=== PATIENT | male | born 1940 | race Caucasian/White ===

== ENCOUNTER 2024-03-26 10:42 | Day surgery (SDC) | payer BC, MEDICARE, SELFPAY ==
[2024-03-26] VITALS (10 sets, daily range): BP systolic 77–132; BP diastolic 49–84; BMI 31.5
--- NOTE | 2024-03-26 11:38 | PTCARENOTE ---
NO EKG PER DR JACOBS
--- NOTE | 2024-03-26 14:33 | ITS.CL.CATH ---
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
Cardiac Catheterization
Procedure Report:
CARDIAC CATHETERIZATION REPORT
Date of Procedure: 03/26/2024
Referring: Feliciano Montes MD
Indication: Worsening exertional dyspnea
HEMODYNAMIC DATA
AO: 120/77
LV: 131/17
PCWP: Unable
PA: Unable
RV: 86/20
RA: 22
Oximetry: Ao 91%, PA 56%, cardiac output 3.6, cardiac index 1.6
Simultaneous left ventricular and ascending aortic waveforms demonstrate moderate low gradient AAS with mean gradient 12 mmHg and JAX 1.3 cm
LEFT VENTRICULOGRAPHY: Left ventricular wall motion is normal with visually estimated EF 55%. There is severe mitral annular calcification and at least mild and possibly moderate mitral regurgitation
CORONARY ANGIOGRAPHY
Dominance: Right
Left Main: Normal
LAD: Mild luminal irregularities
Circumflex: Widely patent mid circumflex stent without restenosis
RCA: Dominant vessel with widely patent proximal to mid RCA stent. There is 30% mid RCA stenosis distal to the stented segment.
The PDA and posterolateral branches have mild luminal disease.
Closure Device: None-the procedure was performed via the right radial artery and right femoral vein.
Radiation dose (mGy): 438
DAP (cm2.Gy): 52.7
Fluoroscopy time: 13.5 minutes
CONCLUSIONS:
1. Elevated right heart filling pressures with severe pulmonary hypertension. The RV systolic pressure of 86 mm Hg should be the same as the PA systolic pressure in the absence of pulmonic stenosis. We were unable to get a balloon tipped catheter
into the pulmonary artery due to anatomic issues and the high-pressure with concomitant tricuspid regurgitation.
2. Low cardiac output state using the RV saturation as a surrogate for the PA saturation
3. Severe mitral annular calcification with at least mild and possibly moderate mitral regurgitation
4. Moderate low output/low gradient with mean gradient 12 mmHg and JAX 1.3 cm�
5. Overall normal left ventricular function with EF 55%
6. Patent RCA and circumflex stents with mild residual CAD
RECOMMENDATIONS: The etiology of his severe pulmonary hypertension is unclear. Given his symptoms of syncope, dizziness, and very significant exertional dyspnea he would be best served in my view with a pulmonary consultation followed by PFTs and
probably chest CT to rule out interstitial lung disease
Copy to: Feliciano Montes MD, Geo Adams DO
Wade Reagan MD, FAC, [facility]
[2024-03-26] MEDS: NSS 1000 IV (14:54)
== END 2024-03-26 18:00 | disposition home or self-care (01) ==
LOC: CATH 10:42
PROVIDERS: ATTENDING PHYSICIAN Internal Medicine Cardiovascular Disease; FAMILY PHYSICIAN Family Medicine; OTHER PHYSICIAN Urology
DX: I25.10 Atherosclerotic heart disease of native coronary artery without angina pectoris (principal); R06.09 Other forms of dyspnea; I08.1 Rheumatic disorders of both mitral and tricuspid valves; I27.20 Pulmonary hypertension, unspecified; Z95.5 Presence of coronary angioplasty implant and graft; R55 Syncope and collapse; R42 Dizziness and giddiness; Z79.82 Long term (current) use of aspirin; Z79.01 Long term (current) use of anticoagulants; I11.0 Hypertensive heart disease with heart failure; I50.32 Chronic diastolic (congestive) heart failure
CPT/HCPCS: 93460; C1894; Q9967

== ENCOUNTER → 2024-04-11 09:56 | Outpatient (REF) | payer BC, MEDICARE, SELFPAY | LOC: RAD 09:56 | PROVIDERS: ATTENDING PHYSICIAN Internal Medicine Critical Care Medicine; FAMILY PHYSICIAN Family Medicine | DX: I27.20 Pulmonary hypertension, unspecified (principal) | CPT/HCPCS: 71250 ==

== ENCOUNTER 2024-07-09 21:55 | Inpatient (IN) | payer MEDICARE, BC, SELFPAY ==
[2024-07-09 19:24] VITALS: BP 119/78
[2024-07-09 20:00] VITALS: BMI 28.9
[2024-07-09 20:04] VITALS: BP 107/83
[2024-07-09 20:07] LABS: % Basophils 0.7 % (0-2); % Eosinophils 4.5 % (0-6); % Immature Granulocytes 0.1 % (0-0.5); % Lymphocytes 16.4 % (20.5-51.1); % Neutrophils 67.3 % (42.2-75.2); Absolute Basophils 0.1 10^3/uL (0-0.2); Absolute Eosinophils 0.3 10^3/uL (0-0.7); Absolute Lymphocytes 1.1 10^3/uL (1.2-3.4); Absolute Monocytes 0.8 10^3/uL (0.1-0.6); Absolute Neutrophils 4.7 10^3/uL (1.4-6.5); Hematocrit 41.6 % (39.0-52.0); Hemoglobin 13.8 g/dL (13.0-18.0); Mean Corp Hgb Conc. 33.2 g/dL (33.0-37.0); Mean Corpuscular Hgb 30.1 pg (27.0-31.0); Mean Corpuscular Volume 90.8 fL (80.0-94.0); Mean Platelet Volume 10.7 fL (7.4-10.4); Nucleated Red Blood Cells % 0 % (-); Platelet Count 255 10^3/uL (130-400); Red Blood Cell Count 4.58 10^6/uL (4.70-6.10); Red Cell Dist. Width 15.4 % (11.5-14.5); White Blood Cell Count 6.9 10^3/uL (4.8-10.8)
--- NOTE | 2024-07-09 20:07 | ED.GENMED ---
History of Present Illness
General
Chief Complaint: Breathing Problem
Source: patient, spouse and family
Time Seen by Provider: 07/09/24 19:52
History of Present Illness
History of Present Illness:
83-year-old male with past medical history of atrial fibrillation, CVA, severe pulmonary hypertension, severe aortic stenosis presenting to the emergency department for evaluation at the request of his alignment technician, Dr. Mendoza, after patient had
CT scan done at [facility] yesterday which showed moderate to large left pleural effusion while he was getting worked up to have aortic valve replacement surgery. Due to the effusion patient would be unable to proceed with surgery and due to
worsening SOB since March, it was recommended patient come to ED for admission and consultation with IR for thoracentesis. Patient SOB started with rib fracture from an injury in March. No fevers, chest pain, palpitations, diaphoresis, LE edema,
cough, hemoptysis.
Past History
Past History
ED Past Medical History: Arrthythmia (AF), CAD, HTN, Hypercholesterolemia, Other (TIA) and Other (b/l carotid artery disease)
ED Past Surgical History: Other (left ICA stent)
Social History
Tobacco: Non-smoker
Alcohol: None
Drug: None
Personal:
Living: with family
Employment: Retired
Family History
Family History: Other (CVA sister)
Review of Systems
Review of Systems
All Other Systems: ROS reviewed and negative except as documented in HPI and ROS
Phy Exam
Physical Exam
Physical Exam:
GENERAL: Alert , in no apparent distress
HEAD: NCAT
EYE: clear conjunctiva
NECK: Supple
ENT: mmm.
CARDIAC: Irregularly irregular rate and rhythm, rate controlled, systolic murmur most pronounced at the right second intercostal space
LUNGS: Clear breath sounds on the right, significantly diminished lung sounds left mid to lower lung zones, no acute respiratory distress
ABDOMEN: Soft, without focal tenderness, no r/g, no cvat
NEUROLOGICAL: Alert and oriented
SKIN: Warm and dry, skin intact.
MUSCULOSKELETAL: well perfused.
PSYCH: Normal and appropriate interaction.
Scores
Heart Failure Risk
Heart Failure Risk Score: Not Applicable
Heart Score for Chest Pain Patients
STEMI patient?: Not applicable
Withdrawal Assessment of Alcohol
Withdrawal Assessment Completed?: Not applicable
Course
Orders/Labs/Results
Orders:
Orders
07/09/24 Breakfast
Cholesterol Lowering
At Your Request: Full Participation
Does patient need a safe tray?: No
Cholesterol Lowering: Sodium, 2 Gram
07/09/24 19:15
Electrocardiogram (*1) Urgent
Reason for Study: Shortness of Breath
07/09/24 19:16
EKG- Treatment ONCE
07/09/24 19:58
Complete Blood Count/With Diff Urgent
Comprehensive Metabolic Panel Urgent
Pro-BNP [NT-proBNP] Urgent
Troponin I Urgent
07/09/24 20:10
PTT Urgent
Prothrombin Time Urgent
07/09/24 21:15
CR Chest - 2 Views Urgent
Comment:
Reason For Exam: shortness of breath
07/09/24 21:16
Furosemide [Lasix] 20 mg IV NOW STA
07/09/24 21:27
Admit/Transfer Patient As Directed
Co-Sign Provider:
Level of Care: Inpatient admission
Assign to:: Telemetry
Physician / Group: Jacklyn Herrera
Diagnosis: left pleural effusion, heart failure
Reason for Telemetry: Chest Pain syndromes
Date to Stop Telemetry: 07/11/24
Time to Stop Telemetry: 11:00
Reason for Hospitalization: left pleural effusion, heart failure
Expected length of stay greater than two midnights?: Yes
ELOS- Estimated Length of Stay in days: 3
I certify the patient meets the requirements for IP care: Yes
07/09/24 21:28
PRN Pain Medication Management As Directed
May give lesser potent ordered pain med per pt: Yes
preference::
Protocol:: Medication orders for pain may be administered in a
manner that supports deferring to patient preference
when the pt is:
- Requesting an ordered lesser potent pain medication.
Least to most potent pain medications are defined
as: acetaminophen < NSAID < tramadol < opioids
(morphine, oxycodone, hydromorphone).
- Requesting a lesser dose of the same medication IF
ORDERED.
- Requesting a less intrusive route of administration
if both routes are prescribed by the provider (PO <
IV).
07/09/24 21:29
Code Status As Directed
Resuscitation Status: Full Code
07/09/24 22:46
Pregabalin [Lyrica] 200 mg PO HS
Tamsulosin [Flomax] 0.4 mg PO HS
07/09/24 22:46
CARDIOLOGY CONSULT Routine
Consulting Provider: Walt Bunch
Was physician already notified: Yes
Consult Pulmonary [PULMONARY CONSULT] Routine
Consulting Provider: Bill Arciniega
Was physician already notified: Yes
HF DIETARY CONSULT Routine
HF EDUCATOR CONSULT Routine
Comment:
IRAD CONSULT Routine
Consulting Provider: Iain Link
Was physician already notified: Yes
Reason for Consult/Procedure: thoracentesis
Acknowledgement that appropriate orders are entered: Yes
Body Fluid Cell Count Routine
What is the Body Fluid: pleural fluid
Date Specimen was Collected: 07/10/24
Time Specimen was Collected: 10:50
Comment: left
Body Fluid Glucose Routine
Fluid Source: Pleural
Other Source: left
Date Specimen was Collected: 07/10/24
Time Specimen was Collected: 10:50
Body Fluid LDH Routine
Fluid Source: Pleural
Other Source: left
Date Specimen was Collected: 07/10/24
Time Specimen was Collected: 10:50
Body Fluid Protein Routine
Fluid Source: Pleural
Other Source: left
Date Specimen was Collected: 07/10/24
Time Specimen was Collected: 10:50
Body Fluid pH Routine
Fluid Source: Pleural
Other Source: left
Date Specimen was Collected: 07/10/24
Time Specimen was Collected: 10:50
Fluid Culture with Gram Stain Routine
KAREEM Source: Pleural Fluid
Specimen Description:
Date Specimen was Collected: 07/10/24
Time Specimen was Collected: 10:50
Comment: left
Activity As Directed
Activity Level: As Tolerated
Bladder Scan As Directed
Follow Bladder Retention/Intermittent Cath Algorithm?: Yes
PRN if no void in __ hours: 6
Frequency: Per Retention Algorithm
If Bladder Scan Result >: 400
then:: Straight cath
Intake/ Output As Directed
Frequency: Per unit guidelines
Nursing to Place Non Medication Order As Directed
Physician Order: please measure post void residual and TT overnight provider the result (me if before MN)
Above order entered?: Yes
Patient Education As Directed
Type: CHF folder
Comment: give on admission. Document in Interdisciplinary Education record
Sleep Apnea Assessment by RN As Directed
Comment:
Physician Instructions:
Straight Cath As Directed
Frequency: Per Retention Algorithm
Additional Instructions: straight cath as needed per acute urinary retention algorithm for 24 hrs
Additional Instructions: for bladder scan greater than 400 mL
Vital Signs As Directed
Frequency: Other
Additional Instructions:: Q12 or per unit guidelines if more frequent.
Weight As Directed
Frequency: Once
Type of Scale: Standing Scale
Comment: Upon Admission. If unable to stand, use balanced bed scale.
IRAD Cytology Routine
Date Specimen was Collected: 07/10/24
Time Specimen was Collected: 10:50
Source: Pleural Fluid, Left
Clinical Impression: new pleural effusion post trauma 3 month ago, hx HF
History of Malignancy: no
History of Radiation / Chemotherapy: no
Submitting Physician: Naomy Christianson
Pulse Ox/cont/shift [RESP] Routine
Quantity: 1
Special Instructions: Daily pulse oximetry at rest. If greater than 92% at rest also obtain pulse oximetry
while ambulating as tolerated.
07/10/24 06:00
Echo 2D MMode Color/Doppler IN AM
Reason for Study: heart failure
07/10/24 07:12
Basic Metabolic Panel IN AM
LDH IN AM
Comment: post procedure, add on to morning labs if already drawn
Magnesium IN AM
TSH Reflex To Free T4 IN AM
Total Protein IN AM
Comment: post procedure, add on to morning labs if already drawn
07/10/24 08:00
Aspirin Low Dose EC [Aspir Low (Enteric Coated)] 81 mg PO DAILY
Ezetimibe [Zetia] 10 mg PO DAILY
Montelukast Sodium [Singulair] 10 mg PO DAILY
Nebivolol HCl [Bystolic] 5 mg PO DAILY
Pantoprazole [Protonix] 40 mg PO DAILY
07/10/24 18:00
Rivaroxaban [Xarelto] 15 mg PO QPM
Rosuvastatin Calcium [Crestor] 40 mg PO QPM
07/11/24 11:00
DC Protocol for Telemetry ONCE
Abnormal Lab Results
07/09/24 07/09/24
19:58 20:10
RBC 4.58 L 10^6/uL
(4.70-6.10)
RDW 15.4 H %
(11.5-14.5)
MPV 10.7 H fL
(7.4-10.4)
Absolute Lymphs (auto) 1.1 L 10^3/uL
(1.2-3.4)
Absolute Monos (auto) 0.8 H 10^3/uL
(0.1-0.6)
Lymphocytes % 16.4 L %
(20.5-51.1)
Monocytes % 11.0 H %
(1.7-9.3)
PT 37.4 H Sec
(11.4-14.6)
APTT 64.8 H Sec
(23.4-35.0)
BUN 22 H mg/dl
(9-20)
Creatinine 1.9 H mg/dL
(0.7-1.3)
Glucose 117 H mg/dl
(70-99)
07/09/24 19:58
07/09/24 19:58
Vital Signs
Initial and Last Documented VS:
Initial Vital Signs
Temp Pulse Resp BP Pulse Ox
98.1 F 93 14 119/78 90
07/09/24 19:24 07/09/24 19:24 07/09/24 19:24 07/09/24 19:24 07/09/24 19:24
Last Documented Vital Signs
Temp Pulse Resp BP Pulse Ox
98.6 F 76 18 120/64 92
07/10/24 15:15 07/10/24 15:15 07/10/24 15:15 07/10/24 15:15 07/10/24 15:15
MDM/Problems Addressed
Differential Diagnosis Includes:
pleural effusion NEC, less concern for hemothorax given duration of time passed since injury, malignancy, patient on eliquis so no concern for PE, worsening
MDM/Problems Addressed:
83 year old male presenting to ED at request of pulmonary, Dr. Mendoza, for evaluation of large left pleural effusion causing SOB. Patient normal O2 90-92%. sitting around 90% in ED. NAD. Exam confirms moderate to large left pleural effusions. Will
admit with plan for thoracentesis with IR in the morning. Labs ordered.
Chronic conditions affecting care: Arrhythmia
Acute Exacerbation and/or Progression of Chronic Illness: Arrhythmia and Other (pulmonary HTN)
*Pulse Oximetry
Patient hypoxic: yes
*EKG
Interpreted by ED Provider?: Yes
Heart Rate: 90
Rate: normal
Rhythm: a-fib
Ischemia: no ischemia
*Marketing Analytics Analyst Interpretation
Rate: normal
Rhythm: a-fib
*Critical Care Note
Total Time (30-74mins, 75-104mins- exclusive of procedures): Not Applicable
Data Reviewed
Review of Other/Old Records Reveals: Labs and Records
Source: patient, records, spouse and family
Patient Management
Discussion with other providers: Hospitalist
Escalation/DeEscalation of care consider admission/obs:
Hospitalist team accepts for continued evaluation and treatment
ED Attending Note
-
Portions of this chart may have been created with voice recognition software.� Occasional wrong word or��sound alike� substitutions may have occurred due to the inherent limitations of voice recognition software.
Discharge Plan
Departure
Patient Disposition: Admit
Date of Disposition: 07/09/24
Time of Disposition: 20:34
Presentation/result/management discussed w/ accepting MD/DO: Hospitalist
Discharge Problem:
Pleural effusion, Pulmonary hypertension, Aortic stenosis
Interventions
Interventions:
*Risk Screen - Suicide Last Done: 07/09/24 22:03
*General Assessment Last Done: 07/09/24 19:24
*Neglect/Abuse Screening Last Done: 07/09/24 19:24
*ED COVID-19 Vaccine History Last Done: 07/09/24 19:24
*Nursing Disposition Last Done: 07/09/24 22:43
ED- Cardiac Assessment Last Done: 07/09/24 20:00
ED- Pulmonary Assessment Last Done: 07/09/24 20:00
Discharge Date and Time
Discharge Date/Time: 07/09/24 22:43
[2024-07-09 20:27] LABS: INR 3.71; PT 37.4 Sec (11.4-14.6)
[2024-07-09 20:28] LABS: APTT 64.8 Sec (23.4-35.0)
[2024-07-09 20:31] LABS: NT-proBNP 1650 pg/ml; Troponin I < 0.012 ng/ml
[2024-07-09 20:40] LABS: ALT (SGPT) 13 U/L (0-50); AST (SGOT) 29 U/L (17-59); Albumin 3.5 g/dl (3.5-5.0); Alkaline Phosphatase 112 U/L (38-126); Blood Urea Nitrogen 22 mg/dl (9-20); Calcium 8.7 mg/dl (8.4-10.2); Carbon Dioxide 27 mmol/L (22-30); Chloride 102 mmol/L (98-107); Estimated Creatinine Clearance 30 ml/min; Glucose 117 mg/dl (70-99); Sodium 140 mmol/L (135-145); Total Bilirubin 1.2 mg/dl (0.2-1.3); Total Protein 6.4 g/dl (6.3-8.2); eGFR 34.14
--- NOTE | 2024-07-09 20:57 | HPS.HSE ---
Family Physician
-
Family Physician: Geo Adams
Chief Complaint
-
shortness of breath
History of Present Illness
Mr. Zander Adams is a 83 yo man with hx atrial fibrillation, CVA, severe pulmonary hypertension, severe with plans for TAVR in 2-3 weeks at [facility] s/p CT there yesterday for TAVR work-up showing moderate to large left pleural effusion sent
to the ER from [facility] for further treatment and work-up.
Patient states he was admitted to [facility] in March after a fall with 4 left rib fractures and pleural effusion. He told me he didn't have follow up x-ray until yesterday's CT. He has had shortness of breath with exertion. + cough. No fevers. No
chest pain.
No nausea/vomiting/diarrhea. No abdominal pain. chronic LE swelling. Lives at home with
Medical History
Past Medical History
Past Medical History: Reports Other
Additional Past Medical History:
atrial fibrillation, CVA, severe pulmonary hypertension, severe , HLD, bilateral carotid artery stenosis;
Past Surgical History: Reports Other
Additional Past Surgical History:
left ICA stent
Social History
Tobacco: Non-smoker
Alcohol: None
Family History
Family History: Not pertinent
Allergies / Home Medications
Allergies reflects when Allergies were last updated in [employer].
Home Medications with original date entered in [employer]
Allergy/Medication List:
Allergies
Allergy/AdvReac Type Severity Reaction Status Date / Time
No Known Allergies Allergy Verified 03/26/24 11:16
Home Medications
ezetimibe 10 mg tablet 10 mg PO DAILY 05/04/14
montelukast 10 mg tablet 10 mg PO DAILY 05/04/14
rosuvastatin 20 mg tablet 40 mg PO QPM 05/04/14
aspirin 81 mg tablet,delayed release 81 mg PO DAILY #0 tabs 06/10/14
rivaroxaban 20 mg tablet (Xarelto) 20 mg PO QPM ##0 06/10/14
coenzyme Q10 100 mg capsule (CoQ-10) 300 mg PO DAILY 03/26/24
furosemide 20 mg tablet 20 mg PO DAILY 03/26/24
nebivolol 5 mg tablet 5 mg PO DAILY 03/26/24
pantoprazole 40 mg tablet,delayed release 40 mg PO DAILY 03/26/24
pregabalin 100 mg capsule (Lyrica) 200 mg PO HS 03/26/24
tamsulosin 0.4 mg capsule 0.4 mg PO HS 03/26/24
vitamin B complex 1 tab PO DAILY 07/09/24
Review of Systems
-
History Source: Patient
A 12 point ROS was completed and negative except as noted: Yes
Physical Exam
Vital Signs
Vital Signs
Temp Pulse Resp BP Pulse Ox
98.1 F 82 27 107/83 92
07/09/24 19:24 07/09/24 20:04 07/09/24 20:04 07/09/24 20:04 07/09/24 20:04
Physical Exam
General: No Apparent Distress
HEENT: PERRLA
Respiratory: Other (decreased breath sounds left lung)
Cardiac: S1/S2 and Regular Rhythm
GI: Soft and Non Tender
Musculoskeletal: No Edema
Skin: Warm and Dry; No Rash
Neuro: AO x 3
Psych: Calm
Laboratory Results
-
07/09/24 19:58
07/09/24 19:58
Laboratory Results
PT 37.4 Sec (11.4-14.6) H 07/09/24 20:10
INR 3.71 07/09/24 20:10
APTT 64.8 Sec (23.4-35.0) H 07/09/24 20:10
Total Bilirubin 1.2 mg/dl (0.2-1.3) 07/09/24 19:58
AST 29 U/L (17-59) 07/09/24 19:58
ALT 13 U/L (0-50) 07/09/24 19:58
Alkaline Phosphatase 112 U/L (38-126) 07/09/24 19:58
Troponin I < 0.012 ng/ml 07/09/24 19:58
Data Reviewed
-
Diagnostic Radiology: Report Reviewed by me
Lab Data: Labs Reviewed by me
Impression/Plan
-
Mr. Zander Adams is a 83 yo man with hx atrial fibrillation on Xarelto, CVA, severe pulmonary hypertension, severe with plans for TAVR in 2-3 weeks at [facility] s/p CT there yesterday for TAVR work-up showing moderate to large left pleural
effusion sent to the ER from [facility] for further treatment and work-up.
Triage VS: T 98.1, P 93, RR 14, BP 119/78, SpO2 90%
LABS: WBC 6.9, Hg 13.8, PLT 255, Na 140, K+ 4.0, CO2 27, BUN 22, Cr 1.9, Glucose 117, liver enzymes WNL, Trop < 0.012
INR 3.71
Left Pleural Effusion
-obtaining CXR now
-IR consult for thoracentesis - send studies
-Pulmonary consult
-patient is stable on room air, in no respiratory distress
Heart Failure Unknown EF in setting of severe , acute exacerbation
-JVP appreciated on exam
-will give one dose of IV lasix x 1 now then hold further until exam and renal function tomorrow morning
-TTE
-Cardiology consult
-strict I/O, daily weights
MARCIA
-urine studies, bladder scan
-monitor with diuresis
Atrial Fibrillation
-PULLEY WORKER Nebivolol
-PULLEY WORKER Xarelto - dose adjust for renal function
HLD
-PULLEY WORKER Statin
BPH
-PULLEY WORKER Flomax
DVT PPx - PULLEY WORKER Xarelto
FULL CODE
76 minutes spent on patient care
[2024-07-09 21:00] VITALS: BP 109/85
[2024-07-09 22:00] VITALS: BP 116/63
--- NOTE | 2024-07-09 22:51 | PTCARENOTE ---
Pt arrived onto floor @2251. Pt AAOx3 and able to walk into room w/ minimal assistance. Pt with no complaints of pain or SOB at this time. Pt oriented to room and call cole; will continue to monitor.
[2024-07-09 23:12] VITALS: BMI 28.9
[2024-07-09] MEDS: LASIX 20 MG IV (23:20)
[2024-07-09] MEDS: FLOMAX 0.4 MG PO (23:20)
[2024-07-09] MEDS: LYRICA 200 MG PO (23:20)
[2024-07-09 23:38] VITALS: BP 128/71; BMI 27.9
[2024-07-10 03:07] VITALS: BP 121/71
[2024-07-10 06:00] VITALS: BMI 27.0
[2024-07-10 07:18] VITALS: BP 126/67
[2024-07-10 07:57] LABS: INR 2.42; PT 26.2 Sec (11.4-14.6)
[2024-07-10 08:14] LABS: Blood Urea Nitrogen 19 mg/dl (9-20); Calcium 8.8 mg/dl (8.4-10.2); Carbon Dioxide 24 mmol/L (22-30); Chloride 103 mmol/L (98-107); Estimated Creatinine Clearance 48 ml/min; Glucose 108 mg/dl (70-99); LDH 175 U/L (120-246); Magnesium 1.8 mg/dl (1.6-2.3); Potassium 3.5 mmol/L (3.5-5.1); Sodium 141 mmol/L (135-145); eGFR 59.26
[2024-07-10 08:26] LABS: TSH Reflex To Free T4 4.63 uIU/ml (0.47-4.68)
[2024-07-10] MEDS: ZETIA 10 MG PO (08:39)
[2024-07-10] MEDS: PROTONIX 40 MG PO (08:39)
[2024-07-10] MEDS: ASPIR LOW (ENTERIC COATED) 81 MG PO (08:39)
[2024-07-10] MEDS: SINGULAIR 10 MG PO (08:39)
[2024-07-10] MEDS: BYSTOLIC 5 MG PO (08:39)
--- NOTE | 2024-07-10 08:45 | CON.CAR ---
Addendum entered and electronically signed by Demetri Bhat MD 07/10/24 12:30:
83 yo male with PMH of CAD, prior stenting, chronic HFPEF, aortic stenosis with plans for TAVR at [facility], pulmonary HTN, permanent A fib on xarelto, is admitted with SOB. He was referred to ED due to evidence of left hemothorax on TAVR CT. He did
fall and have left sided rib fracture in March. Exam with irregular rhythm, II/ systolic murmur at RUSB, no edema. Tele: A fib 70s.
Agree with plans for IR evaluation for thoracentesis.
Resume PO lasix tomorrow.
Original Note:
Consultation
Consultation Request
Date/Time Consultation Requested: 07/09/24 10:45p
Date/Time Consultation Performed: 07/10/24 8:45a
Requesting Provider: Dr. Herrera
Performing Provider: SABRA Seaman for Dr. Bhat
Reason for Consultation: large hemothorax on outpatient chest CT
Medical History
-
Chief Complaint: abnormal chest CT as outpatient, left hemothorax
History of Present Illness:
Mr. 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 Tejada and Dr. Guevara at [facility]), permanent Afib on Xarelto, HTN, HLD and TIA, who
presents to the ER for large left hemothorax on outpatient chest CT done at [facility] on 07/08/24. He is currently under evaluation for TAVR at [facility], 07/08/24 he had several tests in preoperation for TAVR. He c/o CEBALLOS that has been ongoing and he
relates that to his moderate . He fell 04/14/24 and fractured 4 ribs on his left side, seen at [facility]. Now chest CT 07/08/24 showed a large hemothorax, [facility] contacted Dr. Tejada about the CT results and he notified the patient to go
to the ER for evaluation.
Past Medical History
Past Medical History: Other (as above)
Past Surgical History: Other (as above)
Social History
Tobacco: Non-Smoker
Alcohol: None
Personal:
Living: With Family
Employment: Retired
Family History
Family History: Reviewed & Not Pertinent
Allergies / Home Medications
Allergy/AdvReac Type Severity Reaction Status Date / Time
No Known Allergies Allergy Verified 03/26/24 11:16
�Medication �Instructions �Recorded �Confirmed �Type
ezetimibe 10 mg tablet 10 mg PO DAILY 05/04/14 07/09/24 History
montelukast 10 mg tablet 10 mg PO DAILY 05/04/14 07/09/24 History
rosuvastatin 20 mg tablet 40 mg PO QPM 05/04/14 07/09/24 History
aspirin 81 mg tablet,delayed 81 mg PO DAILY #0 tabs 06/10/14 07/09/24 Rx
release
rivaroxaban 20 mg tablet (Xarelto) 20 mg PO QPM ##0 06/10/14 07/09/24 Rx
coenzyme Q10 100 mg capsule 300 mg PO DAILY 03/26/24 07/09/24 History
(CoQ-10)
furosemide 20 mg tablet 20 mg PO DAILY 03/26/24 07/09/24 History
nebivolol 5 mg tablet 5 mg PO DAILY 03/26/24 07/09/24 History
pantoprazole 40 mg tablet,delayed 40 mg PO DAILY 03/26/24 07/09/24 History
release
pregabalin 100 mg capsule (Lyrica) 200 mg PO HS 03/26/24 07/09/24 History
tamsulosin 0.4 mg capsule 0.4 mg PO HS 03/26/24 07/09/24 History
vitamin B complex 1 tab PO DAILY 07/09/24 07/09/24 History
Review of Systems
-
History Source: Patient
All other systems: Negative unless noted
Physical Exam
Vital Signs
Temp Pulse Resp BP Pulse Ox
97.9 F 83 20 126/67 96
07/10/24 07:18 07/10/24 07:18 07/10/24 07:18 07/10/24 07:18 07/10/24 07:18
Lab Results
07/09/24 19:58
07/10/24 07:12
Troponin I < 0.012 ng/ml 07/09/24 19:58
Len-Y-Dagjfmysued Pept 1650 pg/ml 07/09/24 19:58
Physical Exam
General: Well Developed, Well Nourished and No Apparent Distress
HEENT: Normocephalic, Anicteric and Moist Mucous Membranes
Respiratory: Non Labored Respirations and Other (diminished left side)
Cardiac: S1/S2 and Irregular Rhythm
Breast: Deferred by me
GI: Soft, Non Tender and Normal Bowel Sounds
Rectal: Deferred by Provider
Genito-urinary: Clear Urine
Musculoskeletal: No Edema
Skin: Warm and Dry
Neuro: AO x 3
Hematologic/Lymphatic: No Lymphadenopathy
Psych: Calm
Impression / Plan
-
Left hemothorax - noted on outpatient chest CT 06/21/24 at [facility].
- CXR here 07/09/24 with large left sided pleural effusion.
- IRAD consult and plan for thoracentesis.
- s/p fall 04/14/24 with 4 rib fractures, seen at [facility].
Afib - permanent.
- asymptomatic, no palps.
- rate controlled with Bystolic.
- OAC with Xarelto, he took his dose last night.
- initially in admit his CrCl was < 50 therefore Xarelto dose changed to 15mg QPM but now CrCl is > 50 so Xarelto should be 20mg QPM.
Aortic stenosis - moderate on cath 03/26/24 at .
- evaluation for TAVR at [facility].
PHTN - severe.
- managed by Dr. Guevara at [facility].
- sees Dr. Tejada as well.
CAD - stable on cath 03/26/24.
- patent RCA and Circumflex stents.
- 30% mid RCA stenosis.
- Crestor, Zetia, ASA.
HFpEF - EF 55% on cath 03/26/24.
- no overt HF on exam.
- left lung sounds diminished due to effusion/hemothorax - thoracentesis today.
Data Reviewed
-
EKG: Tracing Personally Visualized and interpreted (Afib 90 bpm)
Radiology: Report Reviewed by me (CXR: large left pleural effusion, 70% of left hemithorax)
Medical Tests (Nuc Med, Echo etc): Report Reviewed by me (cath 03/26/24: patent RCA and circumflex stents, mild CAD 30% mid RCA stenosis, severe PHTN, severe MAC with mild/mod MR, mod )
Labs: Labs Reviewed by me
Old Records: Reviewed
--- NOTE | 2024-07-10 09:36 | CON.PUL ---
Consultation
Consultation Request
Date/Time Consultation Requested: 07/09/2024 - 2245
Date/Time Consultation Performed: 07/10/2024 - 932
Requesting Provider: Dr. Herrera
Performing Provider: Dr. Rios
Reason for Consultation: Left pleural effusion
Medical History
-
Chief Complaint: SOB
History of Present Illness:
83-year-old male former tobacco smoker with a past medical history of low gradient aortic stenosis, moderate�severe mitral annular calcification with mild�moderate MR, severe pulmonary hypertension with history of syncope, hypertension,
hypercholesterolemia, permanent A-fib on Xarelto, and moderate COPD who presents with SOB. He says that he fell in March 2024 and fractured 4 ribs and has been short of breath since that time. Of note, he has a planned TAVR in the next 2-3 weeks at
[place] and pre-TAVR CT chest showed a moderate�large left-sided pleural effusion and was sent to the ER for further evaluation. In the ER he was afebrile to 98.1 �F, pulse rate 93, breathing at 14 breaths/min, BP 119/78 and saturating 90% on room
air. Labs showed normal WBC at 6.9, Hb 13.8, creatinine 1.9, troponin <0.012, and proBNP elevated at 1650. CXR showed a large left-sided pleural effusion. He was admitted to the hospitalist service and underwent thoracentesis today. He also
obtained Lasix due to JVP seen on exam with concern for acute heart failure exacerbation. Cardiology consulted and echo was pending. Pulmonary service now consulted for additional management/recommendations.
When I saw the patient he was in bed in no acute distress with patient's niece, Nandini, and , Jessica, at bedside. All questions were answered. He is on room air breathing comfortably. He says his shortness of breath has improved, still
coughing up a little bit of clear phlegm. He denies chest pain, THOMPSON, abdominal pain, nausea, vomiting, fevers or chills.
Of note, patient follows with us in the [facility] office with last visit on 04/09/[address] Tejada. Patient has severe pulmonary hypertension with history of syncope, with RV pressure of 86 mmHg via RHC from 03/26/2024 (CO/CI: 3.6/1.6, respectively),
and PA pressures of 77 mmHg via echo. Also on LHC from 03/26/2024, there was severe mitral annular calcification with at least mild�moderate MR seen on left ventriculography with widely patent stents in the LCx + RCA with 30% mid RCA stenosis distal
to the stented segment; also moderate aortic stenosis with low gradient with mean gradient 12 mmHg and JAX 1.3 cm. CTD workup was checked at that last office visit. 6 MWT performed as well showing resting SpO2 99% with SpO2 of 89-90% after walking
a total of [address] chest was ordered to rule out ILD. He also had +1 lower extremity on examination. Full PFT performed on 05/19/2024 showing moderate COPD with mild restrictive lung defect and severe gas exchange capacity which was moderate
when accounting for alveolar volume involving gas exchange (DLco: 36%; DLco/VA: 52%). He has another appointment with our office on 07/13/2024 at 1 PM.
PMHx: Low gradient aortic stenosis, moderate to severe mitral annular calcification with at least mild�moderate MR, severe pulmonary hypertension, hypertension, hypercholesterolemia, permanent A-fib on Xarelto, GERD, pancreatic cyst, history of TIA,
moderate COPD
PSHx: Cardiac stents, carotid endarterectomy, knee replacement
Past Medical History
Past Medical History: Other (Above as per HPI)
Past Surgical History: Other (Above as per HPI)
Social History
Tobacco: Former Smoker (1-2 PPD for several months and quit in 1962)
Alcohol: None
Drug: None
Personal:
Living: With Family
Family History
Family History: CAD (Brother) and Cancer (Brother: Prostate cancer; Brother: Brain cancer)
Allergies / Home Medications
Allergies
Allergy/AdvReac Type Severity Reaction Status Date / Time
No Known Allergies Allergy Verified 03/26/24 11:16
Home Medications
�Medication �Instructions �Recorded �Confirmed �Last Taken �Type
ezetimibe 10 mg tablet 10 mg PO DAILY 05/04/14 07/09/24 07/09/24 History
montelukast 10 mg tablet 10 mg PO DAILY 05/04/14 07/09/24 07/09/24 History
rosuvastatin 20 mg tablet 40 mg PO QPM 05/04/14 07/09/24 07/08/24 History
aspirin 81 mg tablet,delayed 81 mg PO DAILY #0 tabs 06/10/14 07/09/24 07/09/24 Rx
release
rivaroxaban 20 mg tablet (Xarelto) 20 mg PO QPM ##0 06/10/14 07/09/24 07/08/24 Rx
coenzyme Q10 100 mg capsule 300 mg PO DAILY 03/26/24 07/09/24 07/09/24 History
(CoQ-10)
furosemide 20 mg tablet 20 mg PO DAILY 03/26/24 07/09/24 07/09/24 History
nebivolol 5 mg tablet 5 mg PO DAILY 03/26/24 07/09/24 07/09/24 History
pantoprazole 40 mg tablet,delayed 40 mg PO DAILY 03/26/24 07/09/24 07/09/24 History
release
pregabalin 100 mg capsule (Lyrica) 200 mg PO HS 03/26/24 07/09/24 07/08/24 History
tamsulosin 0.4 mg capsule 0.4 mg PO HS 03/26/24 07/09/24 07/08/24 History
vitamin B complex 1 tab PO DAILY 07/09/24 07/09/24 07/09/24 History
Review of Systems
-
History Source: Patient
All other systems: Negative unless noted
Vitals / Labs / Diagnostic Testing
Vital Signs
Temp Pulse Resp BP Pulse Ox
98.0 F 83 16 112/56 93
07/10/24 10:30 07/10/24 10:30 07/10/24 10:30 07/10/24 10:30 07/10/24 10:30
Lab Data
07/09/24 19:58
07/10/24 07:12
Laboratory Results
07/09/24 07/10/24
20:10 07:16
PT 37.4 H 26.2 H
INR 3.71 2.42
APTT 64.8 H
Diagnostic Testing:
Physical Exam
-
HEENT: Normocephalic and Anicteric
Cardiovascular: S1/S2, Murmur (SHANNON) and Peripheral Edema (negative)
Respiratory: Wheeze (negative), Rales (Left middle lobe-left lower lobe region) and Non-Labored Respirations
GI: Soft, Non Distended, Non Tender and Normal Bowel Sounds
Neurology: AO x 3 and Tremors (negative)
Skin: Warm and Dry
General: Respiratory Distress (negative), Comfortable, Chills (negative) and Sweats (negative)
Assessment
-
Assessment: 83-year-old male former tobacco smoker with a PMHx of low gradient aortic stenosis, moderate�severe mitral annular calcification with mild�moderate MR, severe pulmonary hypertension with history of syncope, hypertension,
hypercholesterolemia, permanent A-fib on Xarelto, and moderate COPD who presents with SOB. SOB has been ongoing since he fell in April 13 and fractured 4 ribs. Of note, he was sent to the ER for evaluation by his motor man at [place] as his
pre-TAVR CT chest showed large left-sided pleural effusion. He was given IV Lasix on 07/09/2024 given concern for acute decompensated heart failure with JVP seen on exam. He was admitted to the hospitalist service and underwent thoracentesis on
07/10/2024. Pulmonary now consulted for additional management/recommendations.
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
cyst, history of TIA, moderate COPD
Impression:
#Left-sided pleural effusion s/p thoracentesis (done today � 07/10/2024 removing 500 cc of exudative fluid likely pseudo exudative) likely due to history of aortic stenosis
#Acute HFpEF exacerbation
#Low gradient aortic stenosis (reported as severe and awaiting TAVR at [place] in next few weeks)
#MARCIA (improving)
#Severe pulmonary hypertension
#Mild-moderate mitral regurgitation with severe mitral annular calcification
#Moderate COPD (likely due to unremitting asthma; absolute eosinophil count 300 from 07/09/2024; no evidence of emphysema or bronchitis on CT chest from March 2024)
#History of peripheral groundglass opacity in the lateral APRIL (seen on CT chest from 04/11/2024)
Plan:
- Patient underwent thoracentesis today with 500 cc removed showing pseudo exudative fluid (likely due to diuresis) which is monocyte predominant with low glucose (54) and pH 7.11
- Effusion is likely combination of valvular heart disease + acute decompensated heart failure/acute HFpEF
- Continue with diuresis as tolerated, trending sCr, I/O and UOP
- Sodium/fluid restricted diet recommended
- Re-check TTE --> done today, showing normal biventricular size with enlarged RV size with normal RV function, dense mitral annular calcification with moderate MR, moderate and severe pulmonary hypertension with PASP 65 to 70 mmHg
- He is awaiting a TAVR at [place] in the next few weeks and I advised him to continue with this plan
- Cardiology on board and recs appreciated
- Continue Xarelto with goal HR<110
- Replete electrolytes with K>4, Mg>2
- Maintain SpO2 88-95% with supplemental O2 as needed
- He does have a history of COPD although no emphysema or evidence of bronchitis seen on imaging. His absolute eosinophil count was 300 from this admission. For now, continue with prn DuoNebs and we can always start him on a LABA/ICS if breathing
not improved despite diuresis and thoracentesis
- Continue singulair
- Incentive spirometer encouraged
- Maintain euglycemia with goal BG >100 and <180
- Recommend repeating CT chest to follow-up left upper lobe 6 mm GGO seen on CT chest from 04/11/2024. Would recommend repeating CT chest in 3 to 6 months to assure stability
- DVT ppx
Patient is being prepared for discharge home today. He already has a follow-up appointment with our office on 07/13/2024 at [address] Tejada. Pulmonary service will now sign off. Thank you for allowing us to be involved in the care of this
patient. Please reconsult if there are any additional questions/concerns, or if patient's respiratory status deteriorates.
Data:
CXR 07/09/2024: There is large left-sided pleural effusion occupying approximately 70% of the left hemithorax
Total time spent today was 55 minutes for this encounter. Time includes reviewing laboratory test/imaging results, reviewing pertinent medical records, obtaining and reviewing medical history, performing an appropriate exam, ordering medications,
tests and procedures. Time also includes documentation of this encounter, coordinating patient care and communicating with other healthcare professionals. Total time does not include separately billed tests performed on this date of service.
[2024-07-10 10:30] VITALS: BP 112/56; BP_SYST 83
--- NOTE | 2024-07-10 11:14 | CM ---
Patient off floor, initial assessment completed by , Jessica. Per , patient and reside in a multiple story home, master bedroom/bathroom on first floor, one step to enter. Patient has a walker and cane at home for ambulation. Patient
has had VN through [facility] in April, denies SNF. Patient PCP Geo Adams, pharmacy [facility], confirms prescription coverage. reports no needs at this time. TT to Hospitalist for PT order. CM will continue to follow for all
discharge planning needs.
Plan; home no needs vs VN, watch for needs.
[2024-07-10 11:37] LABS: Body Fluid pH 7.11
[2024-07-10 11:43] LABS: Body Fluid Glucose 54 mg/dl; Body Fluid LDH 342 U/L; Body Fluid Mononuclear 61.3 %; Body Fluid Polymorphonuclear 38.7 %; Body Fluid Protein 3.6 g/dl; Body Fluid WBC 1863 /CUMM
[2024-07-10 11:55] LABS: Body Fluid Second Tech EM
[2024-07-10 12:07] VITALS: BP 99/62
--- NOTE | 2024-07-10 12:09 | W.PN.HOSP.TC ---
Today's Communication/Plan
-
d/c home after pulm eval
Assessment / Plan
Assessment / Plan
1. Left sided pleural effusion
-Initially found on CT chest done @ [place] as part of TAVR workup
-Had mechanical fall and left sided rib fracture in 04/14/24. Imaging done at [facility] at that time may have showed small effusion per spouse.
-Patient rib pain initially improved and did not reoccur.
-CXR in ER showing mod effusion - images reviewed
-S/p Left thoracentesis today with drainage of 500ml of exudative fluid - TWBC 1863 with Bladen 61% PMN 38.7% LDH 342 Glu 54. Gram statin neg. Culture pending. Cytopath collected.
-Suspecting initial rib fracture related pleurisy made prone patient for effusion
-Follow up CXR in 2 views, script provided
-Pumo evaluation pending today
2. Sev
-Pending TAVR at [facility], going through pre-TAVR workup
-Cardiology consulted and input noted
3. MARCIA
-resolved today
4. Paroxysmal Atrial Fibrillation
-RELEASE SPECIALIST Nebivolol
-renal function improved and to be resumed back on xarelto 20mg QPM
5. Sev pulmonary HTN
-f/uing up with [place] [employer]
HLD
BPH
DVT PPx - RELEASE SPECIALIST Xarelto
FULL CODE
More than 30 minutes spent in discharge including
Final examination of the patient
Summarizing hospital stay
Instructions for continuing care to all relevant caregivers
Preparation of discharge records, prescriptions, and referral forms
Total time spent (in minutes): 38 mins
Anticipated Discharge: Today
Subjective/Interval History
-
Date of Service: July 10, 2024
no sob post procedure
resting comfortably in bed
Objective Data
-
Labs:
Laboratory Results
07/10/24 07/10/24
07:12 07:16
PT 26.2 H
INR 2.42
Sodium 141
Potassium 3.5
Chloride 103
Carbon Dioxide 24
BUN 19
Creatinine 1.2
Glucose 108 H
Calcium 8.8
Vital Signs:
Vital Signs
Temp Pulse Resp BP Pulse Ox
98.0 F 83 16 112/56 93
07/10/24 10:30 07/10/24 10:30 07/10/24 10:30 07/10/24 10:30 07/10/24 10:30
I&O
07/09/24 07/10/24 07/11/24
06:59 06:59 06:59
Output Total 1899 / 1899
Balance -1899 / -1899
Review of Systems
-
Respiratory: Reports No Symptoms
Cardiac: Reports No Symptoms
Abdomen/GI: Reports No Symptoms
Physical Exam
-
General: No Apparent Distress and Comfortable
HEENT: Negative Oxygen
Respiratory: Clear to Auscultation
Cardiac: Regular Rhythm and S1/S2; Negative Murmur or Rub
GI: Soft, Nontender, Nondistended and Normal Bowel Sounds
Musculoskeletal: No Edema
Neuro: Awake, Alert, Oriented, No Motor Deficits and Nonfocal/Grossly Intact
Psych: Calm
[2024-07-10 15:15] VITALS: BP 120/64
--- NOTE | 2024-07-11 17:08 | W.DCSUMMARY ---
Discharge Summary
Discharge Data
Date of Admission: 07/09/24
Date of Discharge: 07/10/24
-
Pending Results: No
Hospital Course
Discharging Physician : Dr Tobias Menjivar
Disposition : To home
Primary care physician : Dr Geo Velázquez
Principal Discharge diagnosis :
Left-sided pseudo exudative pleural effusion
Possible loculated left effusion
Acute kidney injury
Chronic Discharge diagnosis :
Severe aortic stenosis
Paroxysmal atrial fibrillation
Severe pulmonary hypertension
Hyperlipidemia
Benign prostatic hyperplasia
Hospital Course :
Patient is 83-year-old male with no mentioned past medical history came to ER after was found to having new left-sided moderate pleural effusion. Patient is undergoing preoperative evaluation for TAVR and as part of that had CT chest done at [facility]. Patient was noted to having new left-sided effusion and came to ER. Patient was asymptomatic and denied of having any shortness of breath/left-sided pain. Chest x-ray in ER showing moderate effusion and interventional radiology was
consulted for thoracentesis. Patient underwent drainage of 500 cc blood containing pleural fluid. Patient had history of rib fracture in March last week and was evaluated at [facility] and was noted to having small effusion at that point.
Patient had some discomfort in that site which resolved at that time. Patient was evaluated by pulmonology and is planned to follow-up in office early next week. Postthoracentesis x-ray reviewed and patient had evidence of residual effusion with
some loculation.
Important imaging findings :
None
Procedure findings :
None
Discharge Plan
-
Patient Disposition: Home (Routine Discharge)
Discharge Diagnosis/Procedures: Left sided effusion
Condition: Fair
Diet: 2 Gram Sodium
Activity: As tolerated
Driving Restrictions: As prior to admission
Bathing Restrictions: OK to Shower
Others Tests: Chest xray in 1-2 week
Activity Restrictions/Additional Instructions:
Follow up with your Car Rider at [facility] after repeat Chest Xray
Referrals:
Alexander Tejada MD [Active] - 07/13/24 1:00 pm
Geo Adams DO [Family Provider] - in one week
Prescriptions:
Continued
montelukast 10 MG tablet
10 mg PO DAILY
ezetimibe 10 MG tablet
10 mg PO DAILY
rosuvastatin 20 MG tablet
40 mg PO QPM
aspirin 81 MG tablet,delayed release (DR/EC)
81 mg PO DAILY Qty: 0 0RF
Rx Instructions:
To start when restarting Xaralto
Xarelto 20 MG tablet
20 mg PO QPM Qty: 0 0RF
pantoprazole 40 mg Tablet,Delayed Release (Dr/Ec)
40 mg PO DAILY
tamsulosin 0.4 mg Capsule
0.4 mg PO HS
furosemide 20 mg Tablet
20 mg PO DAILY
pregabalin [Lyrica] 100 mg Capsule
200 mg PO HS
Patient Comments:
07/09/2024: last filled 03/06/24, 270 tabs for 90 days from [id number]
nebivolol 5 mg Tablet
5 mg PO DAILY
coenzyme Q10 [CoQ-10] 100 mg Capsule
300 mg PO DAILY
vitamin B complex Tablet Extended Release
1 tab PO DAILY
Discharge Orders:
Discharge Patient (As Directed); Ordered 07/10/24
Ordered By: Tobias Menjivar
Discharge Date and Time
Discharge Date/Time: 07/10/24 17:11
Print Language: GABONESE
== END 2024-07-10 17:11 | disposition home or self-care (01) | DRG 306 ==
LOC: 4 WEST ACU 21:55
PROVIDERS: Emergency Medicine; Physician Assistant; Physician Assistant Medical; Radiology Vascular & Interventional Radiology; ADMITTING PHYSICIAN Student in an Organized Health Care Education/Training Program; ATTENDING PHYSICIAN Hospitalist; EMERGENCY PHYSICIAN Emergency Medicine; FAMILY PHYSICIAN Family Medicine; OTHER PHYSICIAN Internal Medicine; OTHER PHYSICIAN Internal Medicine Critical Care Medicine
PROC: 0W9B3ZZ Drainage of Left Pleural Cavity, Percutaneous Approach (ICD-10-PCS; 2024-07-10)
DX: I35.0 Nonrheumatic aortic (valve) stenosis (principal); I50.33 Acute on chronic diastolic (congestive) heart failure; I48.21 Permanent atrial fibrillation; J91.8 Pleural effusion in other conditions classified elsewhere; K86.2 Cyst of pancreas; N17.9 Acute kidney failure, unspecified; J94.2 Hemothorax; E78.00 Pure hypercholesterolemia, unspecified; I25.10 Atherosclerotic heart disease of native coronary artery without angina pectoris; I65.23 Occlusion and stenosis of bilateral carotid arteries; K21.9 Gastro-esophageal reflux disease without esophagitis; J44.89 Other specified chronic obstructive pulmonary disease; I27.20 Pulmonary hypertension, unspecified; I10 Essential (primary) hypertension; N40.0 Benign prostatic hyperplasia without lower urinary tract symptoms; Z96.659 Presence of unspecified artificial knee joint; Z95.5 Presence of coronary angioplasty implant and graft; Z87.891 Personal history of nicotine dependence; Z86.73 Personal history of transient ischemic attack (TIA), and cerebral infarction without residual deficits; Z82.49 Family history of ischemic heart disease and other diseases of the circulatory system; Z79.899 Other long term (current) drug therapy; Z79.82 Long term (current) use of aspirin; Z79.01 Long term (current) use of anticoagulants
CPT/HCPCS: 88305; 32555; 71045; 71046; 80048; 80053; 82945; 83615; 83735; 83880; 83986; 84155; 84157; 84443; 84484; 85025; 85610; 85730; 87015; 87070; 87205; 88112; 89051; 93005; 93306; 99285

== ENCOUNTER 2024-12-16 14:25 | Inpatient (IN) | payer MEDICARE, BC, SELFPAY ==
[2024-12-16] VITALS (9 sets, daily range): BP systolic 92–131; BP diastolic 67–92; BMI 28.3
--- NOTE | 2024-12-16 08:48 | W.PN.CARDCBS ---
Addendum entered and electronically signed by Sampson Quach MD 12/16/24 13:55:
Patient seen and examined
Agree with RISK MANAGER note and assessment
Agree with RISK MANAGER plan
Discussed single-chamber pacemaker implantation with patient and family at the bedside. Discussions with Dr. Roper yesterday regarding transfer. 30 second pause on his ILR with syncope. Prior TAVR at [facility] in July 2024.
General:��no apparent distress, not acutely ill
Neck:��supple. no meningeal signs.
Heart:��s1/s2 regular rate and rhythm, No S3 or S4, Gr 1/6 BSEM,��no rubs, nl PMI equal radial pulses.
Lungs: ��no acute respiratory distress. clear bilaterally
Abdomen:�normal bowel sounds. not tender. no CVAT
Neuro:��alert and oriented. no focal neurological deficits
Skin: ��no rash
Psychiatric:�well kept. interactive and cooperative
Extremities:��no edema. no calf tenderness. negative homans. good distal pulses
General:��no apparent distress, not acutely ill
Neck:��supple. no meningeal signs.
Heart:��s1/s2 regular rate and rhythm, No S3 or S4, Gr 1/6 BSEM,��no rubs, nl PMI equal radial pulses.
Lungs: ��no acute respiratory distress. clear bilaterally
Abdomen:�normal bowel sounds. not tender. no CVAT
Neuro:��alert and oriented. no focal neurological deficits
Skin: ��no rash
Psychiatric:�well kept. interactive and cooperative
Extremities:��no edema. no calf tenderness. negative homans. good distal pulses
Impression:
Syncope with 30sec pause
Loculated pleural effusion post L thoracentesis 12/15/24 150cc
facial laceration d/t fall from syncope
CAD
- Stent to circ and RCA x2 at [facility]
- Cath in 2003 showing patent stents
Permanent Atrial fibrillation (on Xarelto)
History of TIA 11/08/2012
Left internal carotid artery stenosis S/P stent 12/20/2000
- Carotid ultrasound 2023 showing patent L stent and right CEA
Status post loop recorder
Aortic stenosis S/P TAVR 07/21/2024
Chronic diastolic heart failure
BPH
Pancreatic cyst
Plan:
Admit IVU post PPM placement, Loop removal
CXR and Abx post device
resume metoprolol
Will hold Xarelto, resume per EP cards, was restarted on 10mg after TAVR, recommended dose would be 20mg and would resume Xarelto 20 mg daily evening of December 16
Will check BMP with Crcl in am and adjust dose as needed
CAD continue ASA, statin
Will have incision check at [facility] 1 week
continue cardiac care with Dr. Snowden. I sent a text message relating care to Dr. Snowden
��
�
��
�
Original Note:
Today's Communication / Plan
-
PPM placement and Loop explant today
Impression / Plan
-
This is a summary, see scanned H&P
PCP: Geo Adams DO
CDY: Evans Snowden DO
84-year-old male h/o CAD/PCI, post TAVR 2023, Afib, TIA who presented to [facility] by EMS after syncopal episode requiring bystander CPR on 12/14, he hit his head when he fell, CT head/neck neg. His Loop recorder was eventually interrogated and noted
that during the episode he had a 30 sec pause. He is being transferred today for PPM placement.
Impression:
Syncope with 30sec pause
Loculated pleural effusion post L thoracentesis 12/15/24 150cc
facial laceration d/t fall from syncope
CAD
- Stent to circ and RCA x2 at [facility]
- Cath in 2003 showing patent stents
Permanent Atrial fibrillation (on Xarelto)
History of TIA 11/08/2012
Left internal carotid artery stenosis S/P stent 12/20/2000
- Carotid ultrasound 2023 showing patent L stent and right CEA
Status post loop recorder
Aortic stenosis S/P TAVR 07/21/2024
Chronic diastolic heart failure
BPH
Pancreatic cyst
Plan:
Admit IVU post PPM placement, Loop removal
CXR and Abx post device
resume metoprolol
Will hold Xarelto, resume per EP cards, was restarted on 10mg after TAVR, recommended dose would be 20mg
Will check BMP with Crcl in am and adjust dose as needed
CAD continue ASA, statin
Will have incision check at [facility] 1 week
continue cardiac care with Dr. Snowden
Echocardiogram 12/14/24:
SUMMARY
1. Left ventricular ejection fraction, by visual estimation, is 50%.
2. Right ventricular cavity size is mildly dilated with mildly to moderately decreased systolic function. (TAPSE 1.6 cm).
3. Indeterminate LV diastolic function.
4. Severely dilated left atrium by volume index 77.0 mL/m2.
5. Severely dilated right atrium by area 35.8 cm2.
6. Right atrial pressure of (15 mmHg), the estimated right ventricular systolic pressure is severely elevated at (73.7 mmHg).
7. Inferior vena cava normal in size (>2.1 cm) + less than 50% variably consistent with elevated right atrial pressures (15 mmHg).
8. Status post well seated and normal functioning transcatheter aortic valve replacement (TAVR).
9. AoV velocity of 1.38 m/s; Peak aortic valve gradient = 7.6 mmHg; Mean gradient = 4.9 mmHg; AoV Area by continuity equation = 1.48 cm2; AoV Dimensionless Index = 0.47.
10. Aortic valve is a normally functioning mechanical prosthetic valve. No evidence of aortic valve stenosis. Trace aortic regurgitation.
11. Mild to moderate mitral valve regurgitation is seen.
12. Severe mitral annular calcification.
13. Severe tricuspid regurgitation.
Nuclear stress test 03/05/2024:
Conclusions
Patient has known coronary artery disease
The overall test suggests a low likelihood of significant coronary ischemia. Stress upright and perfusion imaging assessed. There is a small focal apical inferior defect which appears fixed. There is a small focal mid anterior defect, which appears
fixed.
Nondiagnostic pharmacologic stress ECG
No symptoms, no arrhythmias
Gated LV ejection fraction 59%, no obvious regional findings. No evidence of transient LV cavity dilatation
Comments:
Comparison study was a pharmacologic nuclear stress test December 12, 2022 which demonstrated no significant perfusion defects. Gated LV ejection fraction 62%
Progress Note - Refinery Operator Coking
Subjective
Date of Service: December 16, 2024
denies cp, sob, LH, dizzy
Objective
Labs:
Laboratory Last Values
WBC 7.3 10^3/uL (4.5-11.0) 12/15/24 00:02
RBC 5.12 10^6/uL (4.20-5.40) 12/15/24 00:02
Hgb 13.9 gm/dL (13.5-16.5) 12/15/24 00:02
Hct 44.2 % (40.0-48.0) 12/15/24 00:02
MCV 86 fl (82-98) 12/15/24 00:02
RDW 17.3 % (11.0-15.0) H 12/15/24 00:02
Plt Count 158 10^3/uL (150-400) 12/15/24 00:02
Neut % (Auto) 58 % (40-78) 12/15/24 00:02
Lymph % (Auto) 29 % (21-49) 12/15/24 00:02
Sumner % (Auto) 10 % (0-10) 12/15/24 00:02
Eos % (Auto) 2 % (0-4) 12/15/24 00:02
Baso % (Auto) 1 % (0-1) 12/15/24 00:02
Neut # (Auto) 4.2 10^3/uL (2.2-8.0) 12/15/24 00:02
Lymph # (Auto) 2.1 10^3/uL (1.0-4.0) 12/15/24 00:02
Sumner # (Auto) 0.7 10^3/uL (0.0-1.0) 12/15/24 00:02
Eos # (Auto) 0.1 10^3/uL (0.0-0.4) 12/15/24 00:02
Baso # (Auto) 0.1 10^3/uL (0.0-0.1) 12/15/24 00:02
PT 17.4 SECONDS (11.5-14.4) H 12/15/24 00:02
INR 1.42 INR 12/15/24 00:02
APTT 35 SECONDS (23-37) 12/13/24 17:05
Specimen Type Arterial 12/13/24 17:09
Puncture Site Rr 12/13/24 17:09
Patient Temperature 37.0 C 12/13/24 17:09
ABG pH at Pt Temp 7.36 (7.35 - 7.45) 12/13/24 17:09
ABG pCO2 at Pt Temp 43.0 mmHg (32.0 - 45.0) 12/13/24 17:09
ABG pO2 at Pt Temp 85.0 mmHg (80.0 - 100.0) 12/13/24 17:09
ABG HCO3 24.3 c)mmol/L (21.0 - 28.0) 12/13/24 17:09
ABG O2 Saturation 96.0 % (88.0 - 100.0) 12/13/24 17:09
ABG Base Excess -1.3 (B)mmol (-2.0 - 2.0) 12/13/24 17:09
Floyd Test Pos 12/13/24 17:09
ABG Sodium 134.0 mmol/L (136.0 - 145.0) L 12/13/24 17:09
ABG Potassium 4.4 mmol/L (3.5 - 5.1) 12/13/24 17:09
ABG Chloride 104.0 mmol/L (98.0 - 107.0) 12/13/24 17:09
ABG Ionized Calcium 4.87 mg/dL (4.6 - 5.32) 12/13/24 17:09
ABG Glucose 134.0 mg/dL (65.0 - 95.0) H 12/13/24 17:09
ABG Lactate 3.1 mmol/L (0.4 - 0.8) H 12/13/24 17:09
Hgb O2 Saturation 94 % (95.0 - 98.0) L 12/13/24 17:09
Carboxyhemoglobin 2.5 % (0.0 - 9.0) 12/13/24 17:09
Methemoglobin 0.1 % (0.0 - 1.5) 12/13/24 17:09
Total Hemoglobin 14.4 g/dl (12.0 - 17.0) 12/13/24 17:09
Oxygen Content 19.0 ml/dL (15.0 - 23.0) 12/13/24 17:09
Liter Flow 15.00 12/13/24 17:09
FiO2 100 % 12/13/24 17:09
Sodium 140 mmol/L (136-145) 12/15/24 00:02
Potassium 4.0 mmol/L (3.5-5.1) 12/15/24 00:02
Chloride 104 mmol/L (98-107) 12/15/24 00:02
Carbon Dioxide 23.7 mmol/L (22.0-29.0) 12/15/24 00:02
Anion Gap 13 (7-16) 12/15/24 00:02
BUN 13 mg/dL (8-23) 12/15/24 00:02
Creatinine 1.09 mg/dL (0.70-1.20) 12/15/24 00:02
GFR Calculation 66 (Over 90) L 12/15/24 00:02
BUN/Creatinine Ratio 11.5 (7.0-25.0) 12/15/24 00:02
POC Glucometer 105 mg/dL (70 - 110) 12/14/24 23:57
Fasting Glucose 117 mg/dL (70-110) H 12/15/24 00:02
Lactic Acid 0.7 mmol/L (0.5-2.0) 12/14/24 03:46
Calcium 9.3 mg/dL (8.8-10.2) 12/15/24 00:02
Phosphorus 3.7 mg/dL (2.5-4.5) 12/15/24 00:02
Magnesium 2.2 mg/dL (1.6-2.4) 12/15/24 00:02
Total Creatine Kinase 60 U/L (20-200) 12/14/24 10:16
CK-MB (CK-2) 3.4 ng/mL (0.0-5.0) 12/14/24 10:16
CK-MB (CK-2) Rel Index 5.7 ng/100IU (0-2.8) H 12/14/24 10:16
Troponin T 5th Gen ng/L 14 ng/L (0-22) 12/15/24 14:18
NT-Pro-B Natriuret Pep 2576 pg/mL (0-300) H 12/14/24 10:16
Triglycerides 65 mg/dL (60-150) 12/14/24 10:16
Cholesterol 96 mg/dL (150-200) L 12/14/24 10:16
LDL Cholesterol, Calc 54 mg/dL (110-160) L 12/14/24 10:16
HDL Cholesterol 29 mg/dL (40-60) L 12/14/24 10:16
Cholesterol/HDL Ratio 3.33 (2.00-5.00) 12/14/24 10:16
25-OH Vitamin D Total 31.9 ng/mL (>30) 12/13/24 17:05
Free T4 Index 5.7 (4.4-11.4) 12/13/24 17:05
Thyroxine (T4) 6.2 mcg/dL (4.5-11.7) 12/13/24 17:05
Free T3 pg/mL 2.4 pg/mL (2.5-4.3) L 12/14/24 03:49
T3 Uptake 1.08 TBI (0.8-1.3) 12/13/24 17:05
TSH 3rd Generation 4.940 mcIU/mL (0.270-4.20) H 12/14/24 03:49
Prolactin 23.5 ng/mL (4.0-15.2) H 12/15/24 00:02
Arterial Blood Glucose 134.0 mg/dL (65.0 - 95.0) H 12/13/24 17:09
Pleural Fluid Source Pleural fluid 12/15/24 13:23
Pleural WBC 316 mm3 (0-1000) 12/15/24 13:23
Pleural RBC 703653 mm3 (0-1000) H 12/15/24 13:23
Pleural Total Protein 1.6 g/dL (0.0-3.0) 12/15/24 13:23
Pleural LDH 162 U/L (50-250) 12/15/24 13:23
Pleural Glucose 76 mg/dL (60-100) 12/15/24 13:23
Ethyl Alcohol < 0.01 g/dL (<0.01) 12/13/24 17:05
Blood Type A Positive 12/13/24 17:05
Antibody Screen Negative 12/13/24 17:05
Physical Exam
Physical Exam
NAD< AOX3
S1, S2, irreg irreg
diminished LLL, non labored
SNTND bsx4
No LE edema
--- NOTE | 2024-12-16 09:41 | W.PN.UPDATE ---
Update Note
Progress Note Update
Patient seen and examined
Discussed plan of care with patient, , and daughter at bedside. I have met daughters and an ablated her aunt in the past.
Discussed plan of care with Dr. Roper yesterday and arrange for transfer given an approximate 30 second pause noted on ILR associated with syncope.
He has had periodic syncope post transcatheter valve replacement which was performed July 21, 2024 at [facility]. He has prior cardiac catheterizations as noted at our hospital. He has an ejection fraction of 50%. He has
permanent atrial fibrillation which was confirmed by outpatient notes. Currently he is conducting in the 80s to 90s with intermittent narrow complex and borderline IVCD.
Discussed single-chamber pacemaker implantation with patient and family including a 1 and 1000 risk of ND stroke and and a 1% risk of pneumothorax tamponade infection or bleeding. He has had periodic thoracentesis on the left lung including
yesterday at [place] and as such in addition to his right hand of this we will pursue via the left deltopectoral groove. Patient signed informed consent. Please see full H&P to follow.
--- NOTE | 2024-12-16 13:55 | ITS.CL.PACE ---
Director Mobile - Pacemaker Implant
Pacemaker Implant
Procedure Report:
Date of Procedure: January 13, 2025
Patient : 1940
Procedure: Pacemaker Implantation.
Indication: 30 second pause ventricular asystole�complete heart block associated with syncope
Implants:
Pulse Generator: Medtronic; Model# W1 SR 01; SN: [id number]
RV Lead: Medtronic; Model# 4074; SN: [id number]
Technique: A time out was performed. The procedure site was identified. The patient was anesthetized by the anesthesia service. Preoperative sedation was administered. The patient was prepped and draped in the usual fashion. Local anesthetic was
applied to the left prepectoral subcutaneous tissue. A 3 inch incision was made 2.5 inches below the left clavicle. A subcutaneous pocket was created with blunt and sharp dissection and hemostasis controlled with Bovie cautery. The left axillary
vein was accessed within the pocket without difficulty. Hemostasis was excellent. The leads were introduced with 7 Fr hemostatic peel away introducer sheaths. The ventricular lead was placed at the right ventricular apex. 10 volt pacing did not
capture the diaphragm. The lead was secured to the pectoralis muscle and fascia. The lead was appropriately attached to the device. The pocket was irrigated with antibiotic solution. The device and lead were placed in the pocket. The incision was
closed in three layers with absorbable suture. The estimated blood loss was minimal. There were no complications.��
The patient's chronic ILR serial LN Q22 was removed at the same time with a stab incision and withdrawal of the chronic ILR. The ILR incision was closed with a 3.0 Vicryl suture. Steri-Strips and gauze were applied.
Fluoroscopy 4.3 minutes of pulsed fluoroscopy and 15.2 mGy
Lead Analysis:
RV lead: R: 18 mV; Threshold: 0.4 V @ 0.5��ms; Impedance: 1104 ohms.
Final Programming: VVIR 60 to 130 bpm
�
Conclusion: Uncomplicated Medtronic pacemaker implant.
Recommendation: Routine post pacemaker care. Resume Xarelto 20 mg daily tomorrow evening. Consider discharge tomorrow December 17. Sling to left arm. Chest x-ray.
--- NOTE | 2024-12-16 16:45 | CM ---
CM following for DC planning needs.
Met w/ patient's spouse at bedside, pt. was in the restroom, to complete initial assessment.
Pt. resides in a private, 1 st home w/ spouse. He is functionally indep. at baseline.
It is anticipated that patient will DC to home once medically stable, without needs.
Will follow.
[2024-12-16] MEDS: LOPRESSOR 37.5 MG PO (17:18)
[2024-12-16] MEDS: TYLENOL 650 MG PO (17:19)
[2024-12-16] MEDS: CRESTOR 40 MG PO (17:19)
[2024-12-16] MEDS: ZETIA 10 MG PO (17:20)
--- NOTE | 2024-12-16 18:19 | PTCARENOTE ---
Pt received post pacemaker placement in left anterior chest. Dressing dry and intact no sign of bleeding or hematoma. Dressing in middle chest from removal of loop recorder also dry and intact. Pt reports 2-3/10 incisional discomfort relieved with
tylenol. Pt helped OOB to BR and went into afib with RVR @140-150's. Pt asymptomatic, Poonam Gomez, DEMAND MANAGER notified , pt given his evening dose of metoprolol which had been held for a few days. ECG done, rate slowed down. Pt identified as a fall risk,
precautions in place, he is oriented and asking for assistance. Pt has scabbed wounds from his fall on his forehead and right elbow. CXR done in dept.
[2024-12-16] MEDS: ANCEF 5 IV (20:35)
[2024-12-16] MEDS: FLOMAX 0.4 MG PO (22:34)
[2024-12-16] MEDS: LYRICA 200 MG PO (22:34)
--- NOTE | 2024-12-17 04:00 | PTCARENOTE ---
Assumed care of pt at change of shift. Afib on tele with occasional Vpacing, HR 60s-70s. Dressing from PPM placement c/d/i with no complications noted, immobilizer in place and activity restrictions discussed with pt who verbalizes understanding.
Ambulating with x1 assist and rolling walker. Plan of care discussed and pt hopeful to be discharged later today. Call cole within reach.
[2024-12-17] MEDS: ANCEF 5 IV (04:56)
[2024-12-17 05:04] VITALS: BP 132/89
[2024-12-17 05:13] VITALS: BMI 27.5
[2024-12-17 05:43] LABS: Hematocrit 45.1 % (39.0-52.0); Hemoglobin 14.3 g/dL (13.0-18.0); Mean Corp Hgb Conc. 31.7 g/dL (33.0-37.0); Mean Corpuscular Hgb 27.2 pg (27.0-31.0); Mean Corpuscular Volume 85.9 fL (80.0-94.0); Mean Platelet Volume 10.9 fL (7.4-10.4); Platelet Count 151 10^3/uL (130-400); Red Blood Cell Count 5.25 10^6/uL (4.70-6.10); Red Cell Dist. Width 17.2 % (11.5-14.5); White Blood Cell Count 6.8 10^3/uL (4.8-10.8)
[2024-12-17 06:03] LABS: Blood Urea Nitrogen 14 mg/dl (9-20); Calcium 9.4 mg/dl (8.4-10.2); Carbon Dioxide 29 mmol/L (22-30); Chloride 103 mmol/L (98-107); Estimated Creatinine Clearance 78 ml/min; Glucose 117 mg/dl (70-99); Potassium 4.4 mmol/L (3.5-5.1); Sodium 138 mmol/L (135-145); eGFR > 60.00
[2024-12-17 07:50] VITALS: BP 99/65
[2024-12-17 08:44] VITALS: BP 99/56
[2024-12-17] MEDS: LOPRESSOR 12.5 MG PO (08:46)
[2024-12-17] MEDS: PROTONIX 40 MG PO (08:46)
[2024-12-17] MEDS: LASIX 20 MG PO (08:47)
[2024-12-17] MEDS: LOPRESSOR 25 MG PO (08:47)
[2024-12-17] MEDS: ASPIR LOW (ENTERIC COATED) 81 MG PO (08:47)
--- NOTE | 2024-12-17 09:24 | W.PN.CARDCBS ---
Addendum entered and electronically signed by Sampson Quach MD 12/17/24 14:10:
Patient seen and examined
Agree with POLYSOMNOGRAPHIC TECHNICIAN note and assessment
Previous POLYSOMNOGRAPHIC TECHNICIAN plan
Exam
����Physical Exam
���������������������General:��no apparent distress, not acutely ill
���������������������������Neck:��supple. no meningeal signs. normal psoterior pharynx
������������������������
���������������������������Heart:��s1/s2 regular rate and rhythm, no murmur. equal radial pulses.
��������������������������Lungs: ��no acute respiratory distress. clear bilaterally
����������������������Abdomen:�normal bowel sounds. not tender. no CVAT
��������������������������Neuro:��alert and oriented. no focal neurological deficits
������������������������������Skin: ��no rash
�����������������������Psychiatric:�well kept. interactive and cooperative
�����������������������Extremities:��no edema. no calf tenderness. negative homans. good distal pulses
Chest x-ray reviewed with stable lead position and no pneumothorax
Impression:
Syncope with 30sec pause/CHB
Loculated pleural effusion post L thoracentesis 12/15/24 150cc, follows with Dr. Tejada
facial laceration d/t fall from syncope
CAD
- Stent to circ and RCA x2 at [facility]
- Cath in 2003 showing patent stents
Permanent Atrial fibrillation (on Xarelto)
History of TIA 11/08/2012
Left internal carotid artery stenosis S/P stent 12/20/2000
- Carotid ultrasound 2023 showing patent L stent and right CEA
Status post loop recorder
Aortic stenosis S/P TAVR 07/21/2024
Chronic diastolic heart failure
BPH
Pancreatic cyst
Plan:
post PPM placement and Loop removal 12/16/24
tele Vpaced with occ PVC's
Continue outpatient metoprolol for rate control
Will resume Xarelto on Saturday evening at recommended dose 20mg (CrCl 78)
CAD continue ASA, statin
Will have incision check at [facility] 1 week
continue cardiac care with Dr. Snowden-I communicated implant with Dr. Roper and Dr. Snowden by phone
OOB, C&DB, I.S.
Home today
Original Note:
Today's Communication / Plan
-
post PPM and loop removal
stable for d/c home
Impression / Plan
-
This is a summary, see scanned H&P
PCP: Geo Adams, DO
CDY: Evans Snowden, DO
84-year-old male h/o CAD/PCI, post TAVR 2023, Afib, TIA who presented to [facility] by EMS after syncopal episode requiring bystander CPR on 12/14, he hit his head when he fell, CT head/neck neg. His Loop recorder was eventually interrogated and noted
that during the episode he had a 30 sec pause. He is being transferred today for PPM placement.
Impression:
Syncope with 30sec pause/CHB
Loculated pleural effusion post L thoracentesis 12/15/24 150cc, follows with Dr. Tejada
facial laceration d/t fall from syncope
CAD
- Stent to circ and RCA x2 at [facility]
- Cath in 2003 showing patent stents
Permanent Atrial fibrillation (on Xarelto)
History of TIA 11/08/2012
Left internal carotid artery stenosis S/P stent 12/20/2000
- Carotid ultrasound 2023 showing patent L stent and right CEA
Status post loop recorder
Aortic stenosis S/P TAVR 07/21/2024
Chronic diastolic heart failure
BPH
Pancreatic cyst
Plan:
post PPM placement and Loop removal 12/16/24
tele Vpaced with occ PVC's
CXR with unchanged loculated LLL effusion compared to 2021 CXR
continue metoprolol titrate as outpt if HR elevated
Will resume Xarelto on Saturday evening at recommended dose 20mg (CrCl 78)
CAD continue ASA, statin
Will have incision check at [facility] 1 week
continue cardiac care with Dr. Snowden
OOB, C&DB, I.S.
Home today
Echocardiogram 12/14/24:
SUMMARY
1. Left ventricular ejection fraction, by visual estimation, is 50%.
2. Right ventricular cavity size is mildly dilated with mildly to moderately decreased systolic function. (TAPSE 1.6 cm).
3. Indeterminate LV diastolic function.
4. Severely dilated left atrium by volume index 77.0 mL/m2.
5. Severely dilated right atrium by area 35.8 cm2.
6. Right atrial pressure of (15 mmHg), the estimated right ventricular systolic pressure is severely elevated at (73.7 mmHg).
7. Inferior vena cava normal in size (>2.1 cm) + less than 50% variably consistent with elevated right atrial pressures (15 mmHg).
8. Status post well seated and normal functioning transcatheter aortic valve replacement (TAVR).
9. AoV velocity of 1.38 m/s; Peak aortic valve gradient = 7.6 mmHg; Mean gradient = 4.9 mmHg; AoV Area by continuity equation = 1.48 cm2; AoV Dimensionless Index = 0.47.
10. Aortic valve is a normally functioning mechanical prosthetic valve. No evidence of aortic valve stenosis. Trace aortic regurgitation.
11. Mild to moderate mitral valve regurgitation is seen.
12. Severe mitral annular calcification.
13. Severe tricuspid regurgitation.
Nuclear stress test 03/05/2024:
Conclusions
Patient has known coronary artery disease
The overall test suggests a low likelihood of significant coronary ischemia. Stress upright and perfusion imaging assessed. There is a small focal apical inferior defect which appears fixed. There is a small focal mid anterior defect, which appears
fixed.
Nondiagnostic pharmacologic stress ECG
No symptoms, no arrhythmias
Gated LV ejection fraction 59%, no obvious regional findings. No evidence of transient LV cavity dilatation
Comments:
Comparison study was a pharmacologic nuclear stress test December 12, 2022 which demonstrated no significant perfusion defects. Gated LV ejection fraction 62%
Progress Note - Color Specialist
Subjective
Date of Service: December 17, 2024
mild inc pain, denies cp, sob
Objective
Labs:
12/17/24 05:10
12/17/24 05:10
Labs
Hgb 14.3 g/dL (13.0-18.0) 12/17/24 05:10
Hct 45.1 % (39.0-52.0) 12/17/24 05:10
Plt Count 151 10^3/uL (130-400) 12/17/24 05:10
Sodium 138 mmol/L (135-145) 12/17/24 05:10
Potassium 4.4 mmol/L (3.5-5.1) 12/17/24 05:10
BUN 14 mg/dl (9-20) 12/17/24 05:10
Creatinine 0.7 mg/dL (0.7-1.3) 12/17/24 05:10
Glucose 117 mg/dl (70-99) H 12/17/24 05:10
Vital Signs and I&O:
Vital Signs
Temp Pulse Resp BP Pulse Ox
97.6 F 90 20 99/65 93
12/17/24 07:54 12/17/24 08:00 12/17/24 07:54 12/17/24 07:50 12/17/24 08:50
Vital Signs
Temp Pulse Resp BP Pulse Ox
97.6 F 90 20 9965 93
12/17/24 07:54 12/17/24 08:00 12/17/24 07:54 12/17/24 07:50 12/17/24 08:50
Intake & Output
12/15/24 12/16/24 12/17/24 12/18/24
06:59 06:59 06:59 06:59
Intake Total 360 / 360
Output Total 525 / 525
Balance -165 / -165
Physical Exam
Physical Exam
NAD, AOX3
S1, S2, irreg irreg, I/ SHANNON
diminished LLL, non labored, faint upper airway exp wheeze
SNTND bsx4
L CW dressing c/d/i no HT
Loop site dressing removed, no drainage, steri strips intact
--- NOTE | 2024-12-17 10:57 | PTCARENOTE ---
Pt seen by and Shannan Gong, CARLOS. Pt on room air at 93%, he states understanding to report SOB to his physical fitness teacher especially in view of recent thoracentesis. Telemetry and IV device removed. Discharge instructions reviewed with pt and his
and daughter regarding activity and driving restrictions, wound care, pain management, medications and their possible side effects, reporting cares and concerns and follow up appt's. Excellent understanding demonstrated. Pt escorted out via
wheelchair and discharged to home.
--- NOTE | 2024-12-17 11:39 | W.DS.TRANS ---
DC Summary - Paper Machine Operator
-
Discharge Instructions:
Sleep Apnea Risk Low
Discharge Diagnosis/Procedures Pacemaker implant and Loop removal
Diet Low Cholesterol
Driving Restrictions No driving for 1 week
Bathing Restrictions OK to Shower
Instructions:
Stand-Alone Forms: DC Inst - Implanted Device
Changes to Home Medications: Yes
Discharge Medications:
DC Medications w/original date entered in [facility]
ezetimibe 10 mg tablet 10 mg PO HS High Cholesterol 05/04/14
montelukast 10 mg tablet 10 mg PO HS Allergies 05/04/14
rosuvastatin 20 mg tablet 40 mg PO QPM High Cholesterol 05/04/14
aspirin 81 mg tablet,delayed release 81 mg PO DAILY #0 tabs 06/10/14
coenzyme Q10 100 mg capsule (CoQ-10) 300 mg PO DAILY Supplement 03/26/24
furosemide 20 mg tablet 20 mg PO DAILY Fluid Retention/Swelling 03/26/24
pantoprazole 40 mg tablet,delayed release 40 mg PO DAILY Gastrointestinal Issue 03/26/24
pregabalin 100 mg capsule (Lyrica) 200 mg PO HS Neurological Condition 03/26/24
tamsulosin 0.4 mg capsule 0.4 mg PO HS Urinary Issue 03/26/24
vitamin B complex 1 tab PO DAILY Supplement 07/09/24
metoprolol tartrate 37.5 mg tablet 37.5 mg PO BID Blood Pressure 12/16/24
rivaroxaban 20 mg tablet (Xarelto) 20 mg PO HS Blood Clot Prevention/Tx #30 tabs 12/17/24
Home Medication Changes
increased xarelto dose to 20mg
Pending Results: No
== END 2024-12-17 10:50 | disposition home or self-care (01) | DRG 243 ==
LOC: IVU 14:25
PROVIDERS: Nurse Practitioner Adult Health; ADMITTING PHYSICIAN Internal Medicine Cardiovascular Disease; FAMILY PHYSICIAN Family Medicine
PROC: 0JPT02Z Removal of Monitoring Device from Trunk Subcutaneous Tissue and Fascia, Open Approach (ICD-10-PCS; 2024-12-16)
PROC: 0JH605Z Insertion of Pacemaker, Single Chamber Rate Responsive into Chest Subcutaneous Tissue and Fascia, Open Approach (ICD-10-PCS; 2024-12-16)
PROC: 02HK3JZ Insertion of Pacemaker Lead into Right Ventricle, Percutaneous Approach (ICD-10-PCS; 2024-12-16)
DX: I44.2 Atrioventricular block, complete (principal); I50.32 Chronic diastolic (congestive) heart failure; I48.21 Permanent atrial fibrillation; R91.8 Other nonspecific abnormal finding of lung field; R55 Syncope and collapse; I25.10 Atherosclerotic heart disease of native coronary artery without angina pectoris; I65.22 Occlusion and stenosis of left carotid artery; Z79.82 Long term (current) use of aspirin; Z86.73 Personal history of transient ischemic attack (TIA), and cerebral infarction without residual deficits; Z79.01 Long term (current) use of anticoagulants
CPT/HCPCS: 33207; 33286; 71045; 80048; 83735; 85027; 87070; 87147; 93005; C1786; C1892; C1898; Q9967

== ENCOUNTER → 2025-03-22 13:34 | Outpatient (REF) | payer BC, SELFPAY | LOC: HWRAD 13:34 | PROVIDERS: ATTENDING PHYSICIAN Internal Medicine Critical Care Medicine; FAMILY PHYSICIAN Family Medicine | DX: R91.8 Other nonspecific abnormal finding of lung field (principal); J91.8 Pleural effusion in other conditions classified elsewhere; J44.9 Chronic obstructive pulmonary disease, unspecified; J90 Pleural effusion, not elsewhere classified; J84.9 Interstitial pulmonary disease, unspecified | CPT/HCPCS: 71250 ==